=== PATIENT | female | born 1960 | race African-American/Black ===

== ENCOUNTER 2022-03-30 22:35 | Emergency (ER) | payer BC ==
[~2022-03-30 22:35] MED LIST: LIDOCAINE PATCH REMOVAL MC SCH
[2022-03-30 22:56] VITALS: BP 149/92; PULSE 58; RESP 20; TEMP 97.7; BMI 49.6
[2022-03-30] MEDS ORDERED: ACETAMINOPHEN 500 MG TABLET (FP) PO ONE (23:14)
[2022-03-30] MEDS ORDERED: LIDOCAINE 5% TOPICAL PATCH TP ONE (23:14)
[2022-03-30] MEDS ORDERED: LIDOCAINE 5% TOPICAL PATCH ONE (23:33)
[2022-03-30] MEDS ORDERED: ACETAMINOPHEN 325 MG TABLET (FP) ONE (23:33)
[2022-03-30 23:46] LABS: BASO % 0.5 % (0-2.0); EOS % 1.8 % (0-4.5); HEMATOCRIT 41.1 % (32.4-45.2); HEMOGLOBIN 13.7 GM/dL (10.7-15.3); LYMPH % 14.3 % (8-40); MCH 30.5 pg (25.7-33.7); MCHC 33.2 g/dl (32.0-36.0); MEAN CELL VOLUME 91.9 fl (80-96); MEAN PLT VOLUME 7.9 fl (7.5-11.1); NEUT % 77.4 % (42.8-82.8); PLATELET COUNT 312 10^3/uL (134-434); RBC 4.48 M/mm3 (3.60-5.2); RDW 14.9 % (11.6-15.6); WHITE BLOOD COUNT 8.2 K/mm3 (4.0-10.0)
[2022-03-30 23:52] LABS: INR 1.06 (0.83-1.09); PROTHROMBIN TIME (PATIENT) 12.3 SEC (9.7-13.0)
[2022-03-30 23:55] LABS: ACTIVATED PTT 33.9 SECONDS (25.2-36.5)
[2022-03-31 00:07] LABS: CALCIUM 9.5 mg/dL (8.5-10.1)
[2022-03-31 00:08] LABS: ALBUMIN 3.9 g/dl (3.4-5.0); BLOOD UREA NITROGEN 18.7 mg/dL (7-18); MAGNESIUM 2.1 mg/dL (1.8-2.4)
[2022-03-31 00:11] LABS: CREATININE 0.8 mg/dL (0.55-1.3)
[2022-03-31 00:13] LABS: BILIRUBIN,TOTAL 0.4 mg/dL (0.2-1); TOT PROT 7.9 g/dl (6.4-8.2)
[2022-03-31] MEDS ORDERED: KETOROLAC TROMETHAMINE 15 MG/ML VIAL IVPUSH ONE (02:39)
[2022-03-31] MEDS ORDERED: KETOROLAC TROMETHAMINE 15 MG/ML VIAL ONE (02:53)
== END 2022-03-31 04:02 | disposition home or self-care (01) ==
LOC: JER 22:35
PROC: 3E0333Z Introduction of Anti-inflammatory into Peripheral Vein, Percutaneous Approach (ICD-10-PCS; principal; 2022-03-30)
DX: R07.89 Other chest pain (principal)
CPT/HCPCS: 0241U-QW; 36415; 71045-TC-FY; 80053; 83735; 84484; 85025; 85610; 85730; 93005; 93010; 99285-25